=== PATIENT | male | born 1955 | race Caucasian/White ===

== ENCOUNTER 2022-03-03 15:16 | Emergency (ER) | payer OTHER ==
--- OUTSIDE RECORDS SUMMARY | 2022-03-03 15:20 | XMS REPORT | Continuity of Care Document ---
:1955 Author Organization [facility] t Address [address] [place] [address] Dr. [address] [place] [address] Care Team Providers Name Role Phone Evan Fitch MD Primary Care Physician JOSE LUNSFORD Attending Clinician Unavailable TERRI PABLO Attending Clinician Unavailable MD TERRI PABLO Attending Clinician Unavailable TERRI PABLO Admitting Clinician Unavailable MD TERRI PABLO Admitting Clinician Unavailable Problems Condition Condition Condition Status Onset Resolution Last Treating Co mments Source Name Details Category Date Date Treatment Clinician Date Chest pain Chest pain Disease Active Overview : [facility] 1-[address] 00:00: g of this Hospita 00 note l might be different from the original. 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 hyperchole 06-16 sterolemia sterolemia 00:00: Ho spita 00 l Essential Essential Disease Active 2019-05 Met hodi hypertensi hypertensi 06-16 st on on 00:00: Hospita 00 l Allergies, Adverse Reactions, Alerts Allergy Allergy Status Severity Reaction(s) Onset Inactive Treating Comm ents Source Name Type Date Date Clinician Flu Propensi Active Swelling Swelling Meth karla Vaccine ty to 02-[address] 2010 (36 adverse 00:00: difficult Hosp ashtyn Mos+)(Pf reaction 00 y l ) s to breathing drug Social History Social Habit Start Date Stop Date Quantity Comments Source History of Current smoker [facility] tobacco use Hospital History SDOH [facility] Alcohol Std Hospital Drinks History SDTN [facility] Alcohol Binge [facility] Alcohol intake 2020-05-23 2020-05-23 Lifetime [facility] 00:00:00 00:00:00 non-drinker Hospital (finding) Tobacco Comment 2020-05-22 2020-05-22 quit 31 years a Meth odist 00:00:00 00:00:00 Hospital Tobacco use and 2020-05-22 2020-05-22 Smokeless tobacco Me thodist exposure 00:00:00 00:00:00 non-user Hospital History SDOH 2020-05-22 2020-05-22 1 [facility] Alcohol Frequency 00:00:00 00:00:00 Hospita l Sex Ass[birth year] At [birth year] [facility] 00:00:00 00:00:00 Hospital Smoking Status Start Date Stop Date Source Ex-smoker 2020-05-22 00:00:00 2020-05-22 00:00:00 [facility] Medications Ordered Filled Start Stop Current Ordering Indication Dosage Frequency Signature Comments Components Source Medication Medication Date Date Medication? Clinician (SIG) Name Name rosuvastati Yes 40mg QD Take 1 Meth karla n (CRESTOR) 5-04 tablet (40 st 40 MG 00:00: mg total) Hospita tablet 00 by mouth l daily. colchicine Yes 1{capsu Take 1 Me thodi 0.6 mg 05-22 le} capsule by st capsule 13:04: mouth as Hospit a 31 needed. l diazePAM Yes 5mg Q6H Take 5 mg Meth karla (VALIUM) 5 -[address] MG tablet 13:04: every 6 Hospi ta 31 (six) l hours as needed for anxiety. meclizine Yes 25mg Q.[id number] Take 25 mg [facility] (ANTIVERT) 1-07 [id number] mouth [address] 25 mg 13:04: 3D (three) Hospita tablet 31 times a l day as needed for dizziness. therapeutic Yes 1{tbl} QD Take 1 Me thodi multivitami 1-[address] n 13:04: mouth Hospita (THERAGRAN) 31 daily. l tablet COQ10, Yes 100mg QD Take 100 Method i UBIQUINOL, 1-[address] ORAL 13:04: mouth Hospita 31 every l evening. vitamin B Yes 1{tbl} QD Take 1 Meth karla complex (B 1-[address] COMPLEX-VIT 13:04: mouth Hospi ta WILLARD B12 31 nightly. l ORAL) IRON, Yes 125mg QD Take 125 [facility] CARBONYL 1-[address] ORAL 13:04: mouth Hospita 31 every l evening. ascorbic Yes 1000mg QD Take 1,000 M ethodi acid, 1-[address] vitamin C, 13:04: mouth Hospit a (vitamin C) 31 every l 1000 MG evening. tablet vit A/vit Yes 1{capsu QD Take 1 Met hodi C/vit 1-07 le} capsule by E/zinc/aggie 13:04: mouth Hospi ta er (ICAPS 31 nightly. l AREDS ORAL) DM/p-ephed/ Yes 1{dose} QD Take 1 M ethodi acetaminoph 1-[address] /doxylam 13:04: mouth Hospita (NYQUIL D 31 every l ORAL) evening. FISH Yes 2000mg QD Take 2,000 Metho di OIL-DHA-EPA 1-[address] ORAL 13:04: mouth Hospita 31 every l evening. metoprolol 2019-05 No 50mg QD Take 1 Meth karla succinate 06-16 tablet (50 st XL (Toprol 00:00: 05:59 mg total) H ospita XL) 50 mg 00 :00 by mouth l 24 hr daily. tablet Xarelto 20 Yes 20mg QD Take 20 mg M ethodi mg tablet 02-[address] 00:00: every Hospita 00 evening. l lisinopriL Yes 10mg QD Take 10 mg M ethodi (PRINIVIL) 02-[address] 10 mg 00:00: every Hospita tablet 00 morning. l cyclobenzap Yes 10mg QD Take 10 mg [facility] rine 5-[address] (FLEXERIL) 00:00: nightly. Hos maicol 10 mg 00 l tablet Immunizations Ordered Immunization Filled Immunization Date Status Commen ts Source Name Name PFIZER COVID-19 MRNA 2020-07-13 Completed [facility] VACCINATION 00:00:00 Hospital PFIZER COVID-19 MRNA 2020-06-22 Completed Meth od[facility] VACCINATION 00:00:00 Hospital Procedures This patient has no known procedures. Plan of Care Planned Activity Planned Date Details Comments Source Future Scheduled 2022-03-02 HEPATITIS B VACCINES Met [facility] Test 10:01:56 (1 of 3 - 3-dose series) [code = HEPATITIS B VACCINES (1 of 3 - 3-dose series)] Future Scheduled 2022-03-02 Hepatitis C screening [facility] Test 10:01:56 (procedure) [code = 277818314] Future Scheduled 2022-03-02 COLONOSCOPY SCREENING [facility] Test 10:01:56 [code = COLONOSCOPY SCREENING] Future Scheduled 2022-03-02 SHINGLES VACCINES (1 Met [facility] Test 10:01:56 of 2) [code = SHINGLES VACCINES (1 of 2)] Future Scheduled 2022-03-02 COVID-19 VACCINE (3 - Me [facility] Test 10:01:56 Booster for Pfizer series) [code = COVID-19 VACCINE (3 - Booster for Pfizer series)] Future Scheduled 2022-03-02 INFLUENZA VACCINE Method [facility] Test 10:01:56 [code = INFLUENZA VACCINE] Encounters Start End Encounter Admission Attending Care Care Encounter Source Date/Time Date/Time Type Type Clinicians Facility Department ID 2020-07-13 2020-07-13 Outpatient [facility] [id number] 00:00:00 00:00:00 JOSE 646 [address] 2020-06-22 2020-06-22 Outpatient [facility] [id number] 00:00:00 00:00:[address] 2020-05-22 2020-05-22 [place] [id number] 00:00:00 00:00:00 TERRI [address] 2020-05-20 2020-05-20 [facility] [id number] 00:00:00 00:00:00 TERRI [address] 2020-05-13 2020-05-13 Outpatient [facility] [id number] 00:00:00 00:00:00 TERRI [address] 2020-04-29 2020-04-29 Outpatient [facility] [id number] 00:00:00 00:00:[address] 2020-04-15 2020-04-15 [facility] [id number] 00:00:00 00:00:00 TERRI [address] Results Test Description Test Time Test Comments Results Result Comments Source SARS-CoV-2 (COVID-19) RNA [Presence] in Respiratory sp ecimen by 2020-05-21 02:22:18 YOHANNES with probe detection Test Item Value Reference Range Interpretation Comme nts SARS-CoV-2 (COVID-19) RNA [Presence] in Respiratory Not detected No t-Detected specimen by YOHANNES with probe detection (test code = 64500-4) [facility]
[2022-03-03 16:51] LABS: Urine Blood 3+ (Negative); Urine Glucose Negative (Negative); Urine Protein 1+ (Negative)
[2022-03-03 17:07] LABS: Absolute Lymphocytes (CBC) 1.4 K/uL (0.7-4.9); Hematocrit 38.7 % (39.6-49.0); Lymphocytes % 10.8 % (15.3-44.8); MCV 91.2 fL (80-100); MPV 7.8 fL (7.6-11.3); RBC Red Blood Cell Count 4.24 M/uL (4.33-5.43)
[2022-03-03 17:10] LABS: Protime INR 1.7
[2022-03-03 17:28] LABS: Albumin 3.9 g/dL (3.4-5.0); Bilirubin Total 0.6 mg/dL (0.2-1.0); Potassium 4.1 mmol/L (3.5-5.1); Protein, Total 7.3 g/dL (6.4-8.2)
[2022-03-03 17:44] LABS: Urine Bacteria <20 /HPF (<20); Urine RBC 21-50 /HPF (None Seen)
--- NOTE | 2022-03-03 18:30 | ER ---
Nurse's Notes [facility] Name: Elvin Mdoi Jr Age: 66 yrs Sex: Male : 1955 Arrival Date: 03/03/2022 Time: 15:20 Bed 8 Private MD: Diagnosis: Hematuria, unspecified;Dehydration Presentation: 03/03 15:36 Chief complaint: Patient states: Blood in urine X 4-5 weeks. Ultrasound was done ld1 yesterday at this hospital outpatient. C/O fatigue, blood in urine and thinks HGB level is down. Pt denies pain. Coronavirus screen: At this time, the client does not indicate any symptoms associated with coronavirus-19. Ebola Screen: No symptoms or risks identified at this time. Initial Sepsis Screen: Does the patient meet any 2 criteria? No. Patient's initial sepsis screen is negative. Does the patient have a suspected source of infection? No. Patient's initial sepsis screen is negative. Risk Assessment: Do you want to hurt yourself or someone else? Patient reports no desire to harm self or others. Onset of symptoms was March 03, 2022. 15:36 Method Of Arrival: Ambulatory ld1 15:36 Acuity: QUINTON 3 ld1 Triage Assessment: 15:36 General: Appears in no apparent distress. comfortable, Behavior is calm, cooperative, ld1 appropriate for age. Pain: Denies pain. EENT: No signs and/or symptoms were reported regarding the EENT system. Neuro: Level of Consciousness is awake, alert, obeys commands, Oriented to person, place, time, situation. Cardiovascular: Capillary refill < 3 seconds Patient's skin is warm and dry. Respiratory: Airway is patent Respiratory effort is even, unlabored. GI: Abdomen is round non-distended. : Urine is blood tinged, mo blood, Reports Blood in urine. Historical: - Allergies: 15:36 Fentanyl; ld1 15:36 flu vaccine [id number](6mos up); ld1 - Home Meds: 15:40 Xarelto 20 mg oral tab 1 tab once daily [Active]; lisinopril 10 mg Oral tab 1 tab once ld1 daily [Active]; carvedilol 12.5 mg oral tab 1 tab 2 times per day [Active]; - PMHx: 15:36 TN; 3 Strokes; Hypertensive disorder; ld1 - PSHx: 15:36 2 back surgeries; 8 neck surgeries; ld1 - Immunization history:: Adult Immunizations up to date, Client reports receiving the 2nd dose of the Covid vaccine. - Social history:: Smoking status: Patient denies any tobacco usage or history of. Patient/guardian denies using alcohol. Screenin:37 Abuse screen: Denies threats or abuse. Denies injuries from another. Nutritional bp screening: No deficits noted. Tuberculosis screening: No symptoms or risk factors identified. Fall Risk None identified. Assessment: 16:10 General: SEE TRIAGE NOTE. bp 17:36 Reassessment: No changes from previously documented assessment. Patient and/or family bp updated on plan of care and expected duration. Pain level reassessed. 18:38 Reassessment: Patient is alert, oriented x 3, equal unlabored respirations, skin aa5 warm/dry/pink. Awaiting IV hydration before d/c home . Vital Signs: 15:36 BP 171 / 93; Pulse 79; Resp 18; Temp 98.6(O); Pulse Ox 100% on R/A; Weight 115.67 kg; ld1 Height 6 ft. 3 in. (190.50 cm); Pain 0/10; 19:00 BP 150 / 85; Pulse 71; Resp 16; Pulse Ox 98% ; bp 19:54 BP 149 / 84; Pulse 71; Resp 18 S; Pulse Ox 99% on R/A; as6 15:36 Body Mass Index 31.87 (115.67 kg, 190.50 cm) ld1 ED Course: 15:20 Patient arrived in ED. as 15:36 Arm band placed on right wrist. ld1 15:39 Triage completed. ld1 16:00 Fransico Greenwood NP is PHCP. pm1 16:00 Mark Anthony Lee MD is Attending Physician. pm1 16:26 Castro Ruvalcaba, HAI is Primary Nurse. bp 16:43 Inserted saline lock: 22 gauge in left antecubital area, using aseptic technique. Blood bp collected. 17:37 Patient has correct armband on for positive identification. Bed in low position. Call bp light in reach. Side rails up X2. 19:05 Primary Nurse role handed off by Castro Ruvalcaba, RN mw2 19:07 Castro Ruvalcaba, RN is Primary Nurse. bp 19:53 No provider procedures requiring assistance completed. IV discontinued, intact, as6 bleeding controlled, No redness/swelling at site. Pressure dressing applied. Administered Medications: 18:35 Drug: NS 0.9% 1000 ml Route: IV; Rate: 1000 ml; Site: left antecubital; aa5 19:55 Follow up: Response: No adverse reaction; IV Status: Completed infusion; IV Intake: as6 1000ml Medication: 19:53 VIS not applicable for this client. as6 Intake: 19:55 IV: 1000ml; Total: 1000ml. as6 Outcome: 18:29 Discharge ordered by MD. pm1 19:54 Discharged to home ambulatory, with family. as6 19:54 Condition: stable 19:54 Discharge instructions given to patient, Instructed on discharge instructions, follow up and referral plans. Demonstrated understanding of instructions, follow-up care. 19:55 Patient left the ED. as6 Signatures: Delma Iglesias Audri, RN RN aa5 Fransico Greenwood, BUYER GRAIN BUYER GRAIN pm1 Castro Ruvalcaba, RN RN Loraine Durbin 2 Krystin Haque, HAI RN ld1 Chance Tyson, HAI RN as6
--- NOTE | 2022-03-03 18:31 | EDPHYS ---
Physician Documentation [facility] Name: Elvin Modi Jr Age: 66 yrs Sex: Male : 1955 Arrival Date: 03/03/2022 Time: 15:20 Bed 8 Private MD: SUJEY Physician Mark Anthony Lee HPI: 03/03 16:26 This 66 yrs old Male presents to ER via Ambulatory with complaints of Urinary Problem. pm1 16:26 The patient presents with hematuria. Onset: The symptoms/episode began/occurred 4-5 pm1 weeks ago. Modifying factors: the symptoms are aggravated by physical activity - working outdoors . Associated signs and symptoms: Pertinent negatives: abdominal pain, dysuria, fever. Severity of symptoms: in the emergency department the symptoms have improved. The patient has been recently seen by a physician: the patient's primary care provider, Dr. Fitch. Had U/S kidneys and bladder performed in here on outpatient basis yesterday. 16:26 Patient presenting here today due to concerns that bleeding has caused him to be anemic pm1 because the patient felt generalized weakness after working in the yard today. When patient is working in the yard he notices that it causes him to have increased hematuria over the past 4 to 5 weeks. Historical: - Allergies: 15:36 Fentanyl; ld1 15:36 flu vaccine [id number](6mos up); ld1 - Home Meds: 15:40 Xarelto 20 mg oral tab 1 tab once daily [Active]; lisinopril 10 mg Oral tab 1 tab once ld1 daily [Active]; carvedilol 12.5 mg oral tab 1 tab 2 times per day [Active]; - PMHx: 15:36 NH; 3 Strokes; Hypertensive disorder; ld1 - PSHx: 15:36 2 back surgeries; 8 neck surgeries; ld1 - Immunization history:: Adult Immunizations up to date, Client reports receiving the 2nd dose of the Covid vaccine. - Social history:: Smoking status: Patient denies any tobacco usage or history of. Patient/guardian denies using alcohol. ROS: 16:26 Constitutional: Negative for fever, chills, and weight loss, Cardiovascular: Negative pm1 for chest pain, palpitations, and edema, Respiratory: Negative for shortness of breath, cough, wheezing, and pleuritic chest pain, Abdomen/GI: Negative for abdominal pain, nausea, vomiting, diarrhea, and constipation, Back: Negative for injury and pain, MS/Extremity: Negative for injury and deformity. 16:26 Skin: Negative for injury, rash, and discoloration. 16:26 : Positive for hematuria. 16:26 Neuro: Positive for Generalized with, Negative for dizziness, headache, numbness, tingling. 16:26 All other systems are negative. Exam: 16:26 Constitutional: This is a well developed, well nourished patient who is awake, alert, pm1 and in no acute distress. Head/Face: Normocephalic, atraumatic. 16:26 Back: No spinal tenderness. No costovertebral tenderness. Full range of motion. Skin: Warm, dry with normal turgor. Normal color with no rashes, no lesions, and no evidence of cellulitis. MS/ Extremity: Pulses equal, no cyanosis. Neurovascular intact. Full, normal range of motion. 16:26 Eyes: Exam is negative for acute changes, Periorbital structures: no acute changes, Extraocular movements: no acute changes, Conjunctiva: no acute changes, no injection. 16:26 ENT: Mouth: no acute changes, Lips: normal, moist, Oral mucosa: normal, pink and intact, moist. 16:26 Cardiovascular: Exam negative for acute changes, Rate: normal, Rhythm: regular, Pulses: no pulse deficits are appreciated. 16:26 Respiratory: Exam negative for acute changes, respiratory distress, shortness of breath, Breath sounds: are clear throughout. 16:26 Abdomen/GI: Inspection: abdomen appears normal, Palpation: abdomen is soft and non-tender, in all quadrants. 16:26 Neuro: Exam negative for acute changes, Orientation: is normal, Motor: is normal, moves all fours. Vital Signs: 15:36 BP 171 / 93; Pulse 79; Resp 18; Temp 98.6(O); Pulse Ox 100% on R/A; Weight 115.67 kg; ld1 Height 6 ft. 3 in. (190.50 cm); Pain 0/10; 19:00 BP 150 / 85; Pulse 71; Resp 16; Pulse Ox 98% ; bp 19:54 BP 149 / 84; Pulse 71; Resp 18 S; Pulse Ox 99% on R/A; as6 15:36 Body Mass Index 31.87 (115.67 kg, 190.50 cm) ld1 MDM: 16:11 Patient medically screened. pm1 18:28 Data reviewed: vital signs. Data interpreted: Pulse oximetry: on room air is 100 %. pm1 Interpretation: normal. Counseling: I had a detailed discussion with the patient and/or guardian regarding: the historical points, exam findings, and any diagnostic results supporting the discharge/admit diagnosis, lab results, the need for outpatient follow up, for definitive care, a urologist, Hematology, to return to the emergency department if symptoms worsen or persist or if there are any questions or concerns that arise at home. 19:10 ED course: Patient without gross hematuria present in urine sample. Negative for anemia pm1 requiring transfusion of blood. Hemoglobin hematocrit within acceptable levels given hematuria onset 4 to 5 weeks. Recommend patient follow-up with urology for possible cystoscope for examination. Unremarkable ultrasound of kidney and bladder from yesterday. 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 Impression for his generalized weakness is dehydration which is evident and his BUN and creatinine. Patient reports improvement in his symptoms with IV fluid hydration in the ER. 03/03 16:23 Order name: CBC with Diff; Complete Time: 17:55 pm1 03/03 16:23 Order name: CMP; Complete Time: 17:39 pm1 03/03 16:23 Order name: Urine Microscopic Only; Complete Time: 17:55 pm1 03/03 16:23 Order name: PT-INR; Complete Time: 17:39 pm1 03/03 16:23 Order name: Ptt, Activated; Complete Time: 17:39 pm1 03/03 16:51 Order name: Urine Dipstick-Ancillary; Complete Time: 17:39 EDMS 03/03 16:23 Order name: IV Saline Lock; Complete Time: 16:43 pm1 03/03 16:23 Order name: Labs collected and sent; Complete Time: 16:43 pm1 03/03 16:23 Order name: Urine Dipstick-Ancillary (obtain specimen); Complete Time: 16:43 pm1 Administered Medications: 18:35 Drug: NS 0.9% 1000 ml Route: IV; Rate: 1000 ml; Site: left antecubital; aa5 19:55 Follow up: Response: No adverse reaction; IV Status: Completed infusion; IV Intake: as6 1000ml Disposition Summary: 03/03/22 18:29 Discharge Ordered Location: Home pm1 Problem: new pm1 Symptoms: have improved pm1 Condition: Stable pm1 Diagnosis - Hematuria, unspecified pm1 - Dehydration pm1 Followup: pm1 - With: Emergency Department - When: As needed - Reason: Worsening of condition Followup: pm1 - With: Private Physician - When: 2 - 3 days - Reason: Recheck today's complaints, Continuance of care, Re-evaluation by your physician Discharge Instructions: - Discharge Summary Sheet pm1 - Dehydration, Adult pm1 - Hematuria, Adult pm1 - Rehydration, Adult pm1 Forms: - Medication Reconciliation Form pm1 - Thank You Letter pm1 - Antibiotic Education pm1 - Prescription Opioid Use pm1 Signatures: Dispatcher [employer] EDMS Janay Vazquez, RN RN aa5 Fransico Greenwood NP WELDING MACHINE OPERATOR FRICTION pm1 Krystin Haque RN RN ld1 Chance Tyson RN as6
[2022-03-03] MEDS ORDERED: NA CHLORIDE 0.9% 1,000 ML ONE (18:33)
[2022-03-03 20:17] VITALS: TEMP 98.6
[2022-03-03 20:20] VITALS: BP 149/84; O2SAT 99
== END 2022-03-03 19:55 | disposition home or self-care (01) ==
LOC: ER 15:16
DX: R31.9 Hematuria, unspecified (principal); E86.0 Dehydration; I10 Essential (primary) hypertension; I25.2 Old myocardial infarction; Z86.73 Personal history of transient ischemic attack (TIA), and cerebral infarction without residual deficits; Z88.5 Allergy status to narcotic agent; Z88.7 Allergy status to serum and vaccine; Z79.01 Long term (current) use of anticoagulants
CPT/HCPCS: 85025; 36415; 85610; 85730; 80053; 96360; 99283; J7030; 81003; 81015

== ENCOUNTER 2023-01-31 23:39 | Emergency (ER) | payer OTHER ==
--- OUTSIDE RECORDS SUMMARY | 2023-01-31 23:44 | XMS REPORT | Continuity of Care Document ---
:[address] [facility] [place], [place] t Address [address] [facility] [address] [place] [address] Care Team Providers Name Role Phone Evan Fitch MD Primary Care Physician Jose Merino Attending Clinician Unavailable JOSE LUNSFORD Attending Clinician Unavailable TERRI PABLO Attending Clinician Unavailable MD TERRI PABLO Attending Clinician Unavailable KNOW, DOES_NOT Admitting Clinician Unavailable TERRI PABLO Admitting Clinician Unavailable MD TERRI PABLO Admitting Clinician Unavailable Payers Payer Name Policy Type Policy Number Effective Date Expiration Date S ource Problems Condition Condition Condition Status Onset Resolution Last Treating Co mments Source Name Details Category Date Date Treatment Clinician Date Chest pain Chest pain Disease Active Overview : Methodi 1-[address] 00:00: g of this Hospita 00 note l might be different from the original. 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 hyperchole 06-16 sterolemia sterolemia 00:00: Ho spita 00 l Essential Essential Disease Active 2019-05 Met hodi hypertensi hypertensi 06-16 st on on 00:00: Hospita 00 l Allergies, Adverse Reactions, Alerts Allergy Allergy Status Severity Reaction(s) Onset Inactive Treating Comm ents Source Name Type Date Date Clinician Influenz DA Active SV DIFFICULTY 2021-05 [facility] a Virus BREATHING 06-23 [facility] Vacc[facility] AND SWOLLEN 00:00: [facility] Influenz DA Active U UNKNOWN [facility] a Virus 05-21 [facility] Vacc[facility] Flu Propensi Active Swelling Swelling Meth karla Vaccine ty to 02-[address] 2010 (36 adverse 00:00: difficult Hosp ashtyn Mos+)(Pf reaction 00 y l ) s to breathing drug Social History Social Habit Start Date Stop Date Quantity Comments Source History [facility] History of tobacco Current smoker [facility] Alcohol intake 2020-05-23 2020-05-23 [facility] 00:[facility]:00 non-drinker Hospital (finding) History of Social 2020-05-23 2020-05-[address] function 00:00:00 00:00:00 Hospital Tobacco use and 2020-05-22 2020-05-22 Smokeless [facility] exposure 00:00:00 00:00:00 tobacco non-user Hospital History SDOH 2020-05-22 2020-05-22 1 [facility] Frequency 00:00:00 00:00:00 Hospita l Tobacco Comment 2020-05-22 2020-05-22 quit 31 years a Meth odist 00:00:00 00:00:00 Hospital Sex Assigned At [birth year] [facility] Smoking Status Start Date [...] Hospita tablet 00 by mouth l daily. rosuvastati Yes 40mg QD Take 1 Meth karla n (CRESTOR) 5-04 tablet (40 st 40 MG 00:00: mg total) Hospita tablet 00 by mouth l daily. rosuvastati Yes 40mg QD Take 1 Meth karla n (CRESTOR) 5-04 tablet (40 st 40 MG 00:00: mg total) Hospita tablet 00 by mouth l daily. vitamin B Yes 1{tbl} QD Take 1 Meth karla complex (B 1-07 tablet by COMPLEX-VIT 13:04: mouth Hospi ta WILLARD B12 31 nightly. l ORAL) IRON, Yes 125mg QD Take 125 Methodi CARBONYL 1-[address] ORAL 13:04: mouth Hospita 31 every l evening. ascorbic Yes 1000mg QD Take 1,000 M ethodi acid, 1-07 mg by vitamin C, 13:04: mouth Hospit a (vitamin C) 31 every l 1000 MG evening. tablet vit A/vit Yes 1{capsu QD Take 1 Met hodi C/vit 1-07 le} capsule by E/zinc/aggie 13:04: mouth Hospi ta er (ICAPS 31 nightly. l AREDS ORAL) DM/p-ephed/ Yes 1{dose} QD Take 1 M ethodi acetaminoph 1-07 Dose by /doxylam 13:04: mouth Hospita (NYQUIL D 31 every l ORAL) evening. FISH Yes 2000mg QD Take 2,000 Metho di OIL-DHA-EPA 1-[address] ORAL 13:04: mouth Hospita 31 every l evening. colchicine Yes 1{capsu Take 1 Me thodi 0.6 mg 1-07 le} capsule by capsule 13:04: mouth as Hospit a 31 needed. l diazePAM Yes 5mg Q6H Take 5 mg Meth karla (VALIUM) 5 1-[address] MG tablet 13:04: every 6 Hospi ta 31 (six) l hours as needed for anxiety. meclizine Yes 25mg Q.[id number] Take 25 mg Methodi (ANTIVERT) 1-07 [id number] by mouth 3 [address] 25 mg 13:04: 3D (three) Hospita tablet 31 times a l day as needed for dizziness. therapeutic 2020- Yes 1{tbl} QD Take 1 Me thodi multivitami 1-[address] n 13:04: mouth Hospita (THERAGRAN) 31 daily. l tablet COQ10, Yes 100mg QD Take 100 Method i UBIQUINOL, 1-[address] ORAL 13:04: mouth Hospita 31 every l evening. vitamin B Yes 1{tbl} QD Take 1 Meth karla complex (B 1-07 tablet by COMPLEX-VIT 13:04: mouth Hospi ta WILLARD B12 31 nightly. l ORAL) IRON, Yes 125mg QD Take 125 Method[facility] CARBONYL 1-[address] ORAL 13:04: mouth Hospita 31 every l evening. ascorbic Yes 1000mg QD Take 1,000 M ethodi acid, 1-07 mg by vitamin C, 13:04: mouth Hospit a (vitamin [...] 13:04: mouth Hospita 31 every l evening. colchicine 2020-0 Yes 1{capsu Take 1 Me thodi 0.6 mg 1-07 le} capsule by st capsule 13:04: mouth as Hospit a 31 needed. l diazePAM 0 Yes 5mg Q6H Take 5 mg Meth karla (VALIUM) 5 1-[address] MG tablet 13:04: every 6 Hospi ta 31 (six) l hours as needed for anxiety. meclizine Yes 25mg Q.[id number] Take 25 mg Methodi (ANTIVERT) 1-07 [id number] by mouth [address] 25 mg 13:04: [...] Meth karla complex (B 1-07 tablet by COMPLEX-VIT 13:04: mouth Hospi ta WILLARD B12 [...] 1 M ethodi acetaminoph 1-07 Dose by /doxylam 13:04: mouth Hospita (NYQUIL D 31 every l ORAL) evening. FISH Yes 2000mg QD Take 2,000 Metho di OIL-DHA-EPA 1-[address] ORAL 13:04: mouth Hospita 31 every l evening. colchicine Yes 1{capsu Take 1 Me thodi 0.6 mg 1-07 le} capsule by capsule 13:04: mouth as Hospit a 31 needed. l diazePAM Yes 5mg Q6H Take 5 mg Meth karla (VALIUM) 5 -[address] MG tablet 13:04: every 6 Hospi ta 31 (six) l hours as needed for anxiety. meclizine Yes 25mg Q.[id number] Take 25 mg Method[facility] (ANTIVERT) 1-07 [id number] by mouth 3 [address] 25 mg 13:04: [...] Hospita 31 every l evening. metoprolol 2019-05 50mg QD Take 1 Meth karla succinate 06-16 12 tablet (50 st XL (Toprol 00:00: 05:59 mg total) H ospita XL) 50 mg 00 :00 by mouth l 24 hr daily. tablet Xarelto 20 2019-0 Yes 20mg QD Take 20 mg M ethodi mg tablet 02-[address] 00:00: every Hospita 00 evening. l lisinopriL 2019-0 Yes 10mg QD Take 10 mg M ethodi (PRINIVIL) 02-[address] 10 mg 00:00: every Hospita tablet 00 morning. l Xarelto 20 2020-0 Yes 20mg QD Take 20 mg M ethodi mg tablet - by mouth st 00:00: every Hospita 00 evening. l lisinopriL 2020-0 Yes 10mg QD Take 10 mg M ethodi (PRINIVIL) - by mouth st 10 mg 00:00: every Hospita tablet 00 morning. l Xarelto 20 2020-0 Yes 20mg QD Take 20 mg M ethodi mg tablet - by mouth st 00:00: every Hospita 00 evening. l lisinopriL 2020-0 Yes 10mg QD Take 10 mg M ethodi (PRINIVIL) -[address] 10 mg 00:00: every Hospita tablet 00 morning. l cyclobenzap Yes 10mg QD Take 10 mg Methodi rine 5-[address] (FLEXERIL) 00:00: nightly. Hos maicol 10 mg 00 l tablet cyclobenzap 2019-0 Yes 10mg QD Take 10 mg Methodi rine 5-[address] (FLEXERIL) 00:00: nightly. Hos maicol 10 mg 00 l tablet cyclobenzap 2019-0 Yes 10mg QD Take 10 mg Methodi rine 5-[address] (FLEXERIL) 00:00: nightly. Hos maicol 10 mg 00 l tablet Immunizations Ordered Immunization Filled Immunization Date Status Commen ts Source Name Name PFIZER COVID-19 MRNA 2020-07-13 Completed Meth odist VACCINATION 00:00:00 [facility] PFIZER COVID-19 MRNA 2020-07-13 Completed Meth odist VACCINATION 00:00:00 [facility] PFIZER COVID-19 MRNA 2020-07-13 Completed Meth odist VACCINATION 00:00:00 [facility] PFIZER COVID-19 MRNA 2020-06-22 Completed Meth odist VACCINATION 00:00:00 [facility] PFIZER COVID-19 MRNA 2020-06-22 Completed Meth odist VACCINATION 00:00:00 [facility] PFIZER COVID-19 MRNA 2020-06-22 Completed Meth odist VACCINATION 00:00:00 Hospital Procedures This patient has no known procedures. Plan of Care Planned Activity Planned Date Details Comments Source Future Scheduled 2023-01-14 [facility] Test 01:58:50 malignant neoplasm of colon (procedure) [code = 930935561] Future Scheduled 2023-01-14 [facility] Test 01:58:50 malignant neoplasm of colon (procedure) [code = 112438662] Future Scheduled 2023-01-14 [facility] Test 01:58:50 malignant neoplasm of colon (procedure) [code = 442228573] Future Scheduled 2023-01-14 Hepatitis C screening [facility] Test 01:58:50 (procedure) [code = 402985235] Future Scheduled 2023-01-14 [facility] Test 01:58:50 malignant neoplasm of colon (procedure) [code = 690859540] Future Scheduled 2023-01-14 [facility] Test 01:58:50 malignant neoplasm of colon (procedure) [code = 512181553] Future Scheduled 2023-01-14 SHINGLES VACCINES (1 Met [facility] Test 01:58:50 of 2) [code = SHINGLES VACCINES (1 of 2)] Future Scheduled 2023-01-14 COVID-19 VACCINE (3 - Me [facility] Test 01:58:50 Pfizer series) [code = COVID-19 VACCINE (3 - Pfizer series)] Future Scheduled 2023-01-14 INFLUENZA VACCINE [facility] Test 01:58:50 (#1) [code = INFLUENZA VACCINE (#1)] Future Scheduled 2022-04-28 Hepatitis C screening [facility] Test 02:37:13 (procedure) [code = 321951609] Future Scheduled 2022-04-28 COLONOSCOPY SCREENING [facility] Test 02:37:13 [code = COLONOSCOPY SCREENING] Future Scheduled 2022-04-28 SHINGLES VACCINES (1 Met [facility] Test 02:37:13 of 2) [code = SHINGLES VACCINES (1 of 2)] Future Scheduled 2022-04-28 COVID-19 VACCINE (3 - [facility] Test 02:37:13 Booster for Pfizer series) [code = COVID-19 VACCINE (3 - Booster for Pfizer series)] Future Scheduled 2022-04-28 INFLUENZA VACCINE Method [facility] Test 02:37:13 [code = INFLUENZA VACCINE] Future Scheduled 2022-03-02 HEPATITIS B VACCINES Met [facility] Test 10:01:56 (1 of 3 - 3-dose series) [code = HEPATITIS B VACCINES (1 of 3 - 3-dose series)] Future Scheduled 2022-03-02 Hepatitis C screening [facility] Test 10:01:56 (procedure) [code = 569542052] Future Scheduled 2022-03-02 COLONOSCOPY SCREENING [facility] Test 10:01:56 [code = COLONOSCOPY SCREENING] Future Scheduled 2022-03-02 SHINGLES VACCINES (1 Met [facility] Test 10:01:56 of 2) [code = SHINGLES VACCINES (1 of 2)] Future Scheduled 2022-03-02 COVID-19 VACCINE (3 - [facility] Test 10:01:56 Booster for Pfizer series) [code = COVID-19 VACCINE (3 - Booster for Pfizer series)] Future Scheduled 2022-03-02 INFLUENZA VACCINE Method [facility] Test 10:01:56 [code = INFLUENZA VACCINE] Encounters Start End Encounter Admission Attending Care Care Encounter Source Date/Time Date/Time Type Type Clinicians Facility Department ID 2022-04-29 2022-04-29 Outpatient ALEXY KeaneWU [facility]G [id number] [facility] 05:46:00 05:46:00 Jose 40 [facility] 2020-07-13 2020-07-13 Outpatient ISATU, [facility] [id number] [place] 00:00:00 00:00:00 JOSE 646 [facility] 2020-06-22 2020-06-22 Outpatient [facility] [id number] [place] 00:00:00 00:00:[address] 2020-05-22 2020-05-22 Outpatient SAMY, [place] [id number] [place] 00:00:00 00:00:00 TERRI [address] 2020-05-20 2020-05-20 Outpatient SAMY, [facility] [id number] [place] 00:00:00 00:00:00 TERRI [address] 2020-05-13 2020-05-13 Outpatient SAMY, [facility] [id number] [place] 00:00:00 00:00:00 TERRI [address] 2020-04-29 2020-04-29 Outpatient [facility] [id number] [place] 00:00:00 00:00:[address] 2020-04-15 2020-04-15 Outpatient SAMY, [facility] [id number] [place] 00:00:00 00:00:00 TERRI [address] Results Test Description Test Time Test Comments Results Result Comments Source SURGICAL 2022-04-30 11:50:00 Test Item Value Reference Range Interpretation Comme nts SURGICAL RUN (test DATE: 04/30/22 Dustin WISEMAN 1 RUN TIME: 1151 Specimen Inquiry RUN USER: INTERFACE code = MARNI SR) ENT: ARNEL GARAY [facility] #: [id number] AGE/SX: 66/M ROOM: RE04/29/22REG DR: Jose Merino MD : 53 BED: DIS: STATUS: [facility] TLOC: SPEC #: [id number] RECD: 1 06/30/21 STATUS: [facility] #: [id number] AUDI: 04/29/[address] [facility] [address]: Jose Merino MD ENTERE SP TYPE: SURGICAL OTHR DR: Self Referred Jose Merino MDORDERED: 88 305, ANATOMIC SPEC, SPECIMEN TRACK COPIES TO: [place] [id number] [place] [address] PROCEDURES: [id number] (04/29/22) SPECIMEN TRA CK (04/29/22) TISSUES: A. 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 - No invasion identified. - No muscularis propria present. GROSS DESCRIPTION Right late ral bladder wall tumor. It consists of parekh tissue fragments measuring 0.5 x 0.4x 0.2 cm, entirely submitted as A1. Technical tissue processing and slide preparation performed at [facility],[address], [place] [address] MICROSCOPIC DESCRIPTION Microscopic exam ination is performed and the findings are incorporated into the finaldiagnosis. Please see diagnosis for the findings. ----- Signed SIGNATURE ON FILE Akila Gupta 04/30/22 1 150 END OF REPORT PROTHROMBIN [id number] 11:55:00 Test Item Value Reference Range Interpretation Comments PROTHROMBIN TIME 15.2 SECONDS 9.4-12.7 H PATIENT (test code = PTP) INTERNATIONAL NORMAL 1.3 0.86-1.14 H The INR is to be RATIO (test code = used only for INR) monitoring oral anticoagulantth erap y. INDICATION INR VALUE ---- ---- ---- -------1. Prophylaxis, de ep venous thrombos is, including high risk surgery. 2.0 - 3.0 2. Prophylaxis, deep venous thrombosis, hip surgery, treatm ent for deep venous thrombosis or pulmonary prevention of systemic emboli sm in patients wit h valvular heart disease, atrial fibrillation, tissue heart va lve, or acute myocar dial infarction. 2.0 - 3.0 3. Prenatal Genetic Counselor al prosthesis hear t valves, recurre nt systemic emboli sm. 3.0 - 4.5 Comments to Table Operator: TAKES XARELTOPTT [id number] 11:55:00 Test Item Value Reference Range Interpretation Comments PTT ACTIVATED (test code = APTT) 36.3 SECONDS 26.2-35.4 H Comments to Table Operator: TAKES XARELTOBASIC METABOLIC [id number] 11:54:00 Test Item Value Reference Range Interpretation Comments SODIUM (test code = 140 MMOL/L 137-145 N NA) POTASSIUM (test code 4.2 MMOL/L 3.5-5.1 N = K) CHLORIDE (test code 105 MMOL/L 98-107 N = CL) CARBON DIOXIDE (test 27 MMOL/L 22-30 N code = CO2) ANION GAP (test code 12 MMOL/L 14-24 L = GAP) GLUCOSE (test code = 107 MG/DL 74-106 H GLU) BLOOD UREA NITROGEN 21 MG/DL 9-20 H (test code = BUN) GLOMERULAR > 60 The Glomerular FILTRATION RATE Filtration R ate is a (test code = GFR) calculated parameterbased on serum Creatinine, pat ient age and sex. GFR va luesless than 60 mL/min/ 1.73 square meters a re indicative ofCh ronic Kidney Disease. Values less than 15 mL/min/1.73squa re meters indicate Kidney failure. The calculation for GFR is based on the CK D-EPI (2020) calculat ion. This formulais race indifferent and is the recommended for yolie for GFRby the Nat nal Kidney Foundati on for Adults.The GFR will not calculate if th e sex is unknown or if thepatient's ag e is <18 years. CREATININE (test 0.90 MG/DL 0.66-1.25 N code = CREAT) CALCIUM (test code = 9.1 MG/DL 8.4-10.2 N CA) CBC W/AUTO [id number] 11:40:00 Test Item Value Reference Range Interpretation Comments WHITE BLOOD CELL (test code = 7.8 K/MM3 3.8-9.8 N WBC) RED BLOOD CELL (test code = 4.58 M/MM3 3.95-5.67 N RBC) HEMOGLOBIN (test code = HGB) 14.3 G/DL 12.4-16.7 N HEMATOCRIT (test code = HCT) 42.3 % 35.9-49.5 N MEAN CELL VOLUME (test code = 92 fL 81.7-96.1 N MCV) MEAN CELL HGB (test code = MCH) 31.2 pg 27.6-33.2 N MEAN CELL HGB CONCETRATION 33.8 % 32.9-35.5 N (test code = MCHC) RED CELL DISTRIBUTION WIDTH 13.2 % 12.1-15.2 N (test code = RDW) PLATELET COUNT (test code = 198 K/MM3 129-368 N PLT) MEAN PLATELET VOLUME (test code 9.4 fl 7.4-10.4 N = MPV) NEUTROPHIL % (test code = NT%) 60.9 % 43-75 N IMMATURE GRANULOCYTE % (test 0.4 % 0.0-2.0 N code = IG%) LYMPHOCYTE % (test code = LY%) 27.6 % 14-44 N MONOCYTE % (test code = MO%) 8.8 % 4-13 N EOSINOPHIL % (test code = EO%) 1.7 % 0-6 N BASOPHIL % (test code = BA%) 0.6 % 0-2 N NUCLEATED RBC % (test code = 0.0 % 0-1.0 N NRBC%) NEUTROPHIL # (test code = NT#) 4.73 K/mm3 2.0-7.6 N IMMATURE GRANULOCYTE # (test 0.03 x10 3/uL 0-0.03 N code = IG#) LYMPHOCYTE # (test code = LY#) 2.14 K/mm3 1.0-3.8 N MONOCYTE # (test code = MO#) 0.68 K/mm3 0.1-0.8 N EOSINOPHIL # (test code = EO#) 0.13 K/mm3 0.0-0.2 N BASOPHIL # (test code = BA#) 0.05 K/mm3 0.0-0.2 N NUCLEATED RBC # (test code = 0.00 K/mm3 0.0-0.1 N NRBC#) SARS-CoV-2 (COVID-19) RNA [Presence] in Respiratory specimen by YOHANNES with probe [id number] 02:22:18 Test Item Value Reference Range Interpretation Comments SARS-CoV-2 (COVID-19) RNA Not detected Not-Detected [Presence] in Respiratory specimen by YOHANNES with probe detection (test code = 77474-3) [facility] Notes Date/Time Note Provider Source 2022-04-30 16:06:00-00:00 [id number] [facility] [address] [place] [address] PATIENT NAME: ARNEL GARAY ADMIT DATE: ACCOUNT NO: [id number] ROOM NO: AGE: 66 REPORT TYPE: OPERATIVE REPORT SEX: M ADMITTING PHYSICIAN: ATTENDING PHYSICIAN:Jose Merino MD OPERATION DATE: 04/29/2022 PREOPERATIVE DIAGNOSIS: Small bladder tumors [place] suring less than 2 cm in aggregate located on the right upper lateral wal l. POSTOPERATIVE DIAGNOSIS: Small bladder tumors me asuring less than 2 cm in aggregate located on the right upper lateral wal l. PROCEDURE PERFORMED: 1. Cystoscopy. 2. Transurethral resection of bladder tumors, le ss than 2 cm. ANESTHESIA: General. SURGEON: Jose Merino MD PROCESS CONTROLLER: INDICATIONS: Mr. Garay is a 66-year-ol d gentleman who was seen in the clinic recently for a history of intermittent gross hem aturia. He has been on anticoagulation for a history of a coagulopathy with a hypercoagulable state. He had been having intermitt ent gross hematuria. CT urogram and office flexible cystoscopy were done. The CT did not reveal any obvious genitourinary abnormalities with regard to malignancy. The off ice flexible cystoscopy revealed the presence of a small bladder tumor l ocated on the upper right lateral wall/dome with a smaller tiny satellite lesion nearby. The tumor appeared to be papillary and of low grade. I exp lained to the patient and his that a cystoscopy and TURBT (transurethral resection of bladder tumor) would be recommended in orde r to determine the pathology and see if this was low or high-grade and whether it was superficial or muscle invasive. Further treatment would be advised accordingly. They wis hed to schedule at this time and he went through the routine preadmission rosita ting process. He held his anticoagulation (Eliquis) 2 days prior to this s urgery. He had been having ongoing intermittent hematuria even up until now . He also complained of a pressure discomfort in the region just below the umbilicus and was not sure whether this was related to his bladder or not. I had started him on Dutasteride to help ____ the prostate an d see if this helps with any potential prostate source of bleeding. I met with the marni ent and his in the preoperative bay prior to the surgery an d went over the indications as well as the technique and possible outcomes. We went ove r the possible complications and how these are managed. Ilia horvath was given a single dose of Rocephin intravenously for infection prophylaxis and bilateral sequenti al compression devices were PATIENT NAME: ARNEL GARAY [id number] placed on the lower extremities for DVT prophyla xis prior to the induction of anesthesia. DESCRIPTION OF THE PROCEDURE : The patient was taken to the operating room after informed consent was obtained. He was placed on the operating table in the supine position. He underwent the satisfactory a dministration of general anesthesia, was placed in the dorsal lithotomy p osition. His genital area was carefully prepped and draped in the usual sterile fashion. Routine time-out was done to verify the patient and procedure planned . I began with a careful introduction of a 21-Fren ch cystoscope sheath and 30-degree lens per the urethra into the bladder. Inspection of the prostatic urethra revealed bilobar enl argement with no significant median lobe component. Images of the prostatic urethra were taken for t he record. I then performed a routine systematic inspection of the nilson dder with a 30 and 70-degree lens with normal saline irrigation. Initially, it was diff icult to see these small tumors. Ultimately, I found him on the right upper lateral wall, a little below where I had documented him in the office under f lexible cystoscopy. I had not prepared for muscle blockade with anesth esia initially because I thought these tumors were located closer to the dome of the bl adder. I determined now as a result of the location that it would be olivera to be very careful about the resection to avoid bladder perforation due to an obturator reflex. See below. I removed the cystoscope and inserted a 26-Guyanese continuous flow resectoscope sheath with 30-degree lens a nd direct visual obturator after first dilating the urethral meatus further up t o 22-Guyanese caliber with Arnav sounds. Once the continuous flow resectoscope was inserted, then confirmed proper bipolar cautery settings with the [employer] Superloop and normal sali ne irrigation. The tumors were confirmed again and the resectos cope loop was extended just beyond the larger tumor. I prepared to t roxanna a small superficial segment of the tumor first and worked my way carefully towards the base that was to avoid any risk of significant bladder injury durin g resection if an obturator reflex was to occur. I then began the bipolar electrocauter y in this manner. He did have a quick obturator reflex twitch and fort unately because of the planning, I was able to resect the entire tu mor and quickly step-off the paddle once the twitch occurred. I reexamined the a maria isabel and saw that I had taken the entire small tumor in this first cautery ____ a nd there was no obvious perforation of the bladder. There was no fat seen at the base of the resection. Rather, I could clearly see detrusor muscle fragments. I mages of that, base of the resection were taken for the record. The other satellite tumor wa s much smaller and was easily amenable to a very superficial TURBT with a slight obtura tor reflex, but no problems. Hemostasis was secured with both resection sites . There was no significant bleeding encountered throughout this por tion of the procedure. I inspected the area carefully to make sure that there was no re sidual disease present. As explained above, these appeared to be superficia l bladder tumors that were likely low-grade in terms of their appearance. I was able to collect the ti ny tumor specimen measuring less than 1 cm and sent it to pathology for analysis. I reinspected the bladder after partially draining the bladder and saw that there was no s ignificant bleeding present. Satisfied with this, I then fully drained the bl adder and then removed all instruments. Lidocaine anesthetic jelly was instilled per the urethra into the bladder for help with postoperative pain control using a Uro-Jet. The patient PATIENT NAME: ARNEL GARAY [id number] was extubated and awakened f rom anesthesia. He tolerated the procedure well and was transferred to the recovery room in stable c ondition. There were no complications. ESTIMATED BLOOD LOSS: Minimal. SPECIMENS: Included the tiny bladder tumor speci men. PLAN: The patient was discha rged to home with a short supply of oral analgesics and antibiotics provided that he was abl e to empty his bladder in the recovery area. Findings and plans were discussed with the patient's after the surgery. I explained that I would call them likely one week later to review the results of the pathology with them. If the tumor was indeed low grade and not muscle invasive, I will plan for a flexible cyst oscopy in the office in approximately 3 months. The plan will change acc ording to the pathology results. Dictated By: Jose Merino MD Date Dictated: 04/30/2022 16:06:59 Date Transcribed: 04/30/2022 21:47:07 OD/SELENE/IGNACIO Receipt ID: [id number] Authenticated by Jose Merino MD On 05/06/2022 0 8:01:36 AM Electronically Signed by Jose Merino MD on 1 07/07/21 at 0801 PATIENT NAME: ARNEL GARAY [id number] 2022-04-29 09:25:00-00:00 [facility] ([facility]) Brief Op Note REPORT#:[id number] REPORT STATUS: Signed DATE:04/29/22 TIME: 924 PATIENT: ARNEL GARAY UNIT #: [id number] ROOM/BED: : 53 AGE: 66 SEX: M ATTEND: Alanna Merino MD ADM AUTHOR: Jose Merino MD * ALL edits or amendments must be made on the el [employer]/computer document * Op/Inv Proc Note - Brief Pre-procedure diagnosis: small bladder tumors < 2 cm on the right upper l ateral wall Post-procedure diagnosis: same as pre procedure dx Procedures performed: cysto, TURBT < 2 cm Primary Surgeon: Jose Merino MD Certified Retinal Angiographer(s): none Anesthesia: general anesthesia, local anesthesia Findings: < 1 cm bladder tumors on the right upper lateral wall resected Complications: none Estimated blood loss in ml's: minimal Specimens removed/altered: tiny bladder tumor < 1 cm Drain(s): None Tube(s): none Implant(s): none Fluids: see anesthesia records Urine output: n/a Disposition: PACU, stable Electronically Signed by Jose Merino MD on at 0929 RPT #:[id number] END OF REPORT
[2023-02-01 01:08] LABS: Specific Gravity 1.024 (1.005-1.030); Urine Bacteria None Seen /HPF (<20); Urine Bilirubin NEGATIVE (Negative); Urine Blood Trace (Negative); Urine Clarity Clear (Clear); Urine Color Yellow (Yellow); Urine Glucose NEGATIVE (Negative); Urine Mucus Slight /HPF (None Seen); Urine Protein NEGATIVE (Negative); Urine RBC <5 /HPF (None Seen); Urine Urobilinogen 1+ (Normal); Urine pH 5.5 (5.0-7.0)
[2023-02-01 01:23] LABS: Absolute Lymphocytes (CBC) 0.9 K/uL (0.7-4.9); Hematocrit 38.4 % (39.6-49.0); Lymphocytes % 9.9 % (15.3-44.8); MCV 90.3 fL (80-100); MPV 7.4 fL (7.6-11.3); Platelets 203 thou/uL (152-406); RBC Red Blood Cell Count 4.25 M/uL (4.33-5.43)
[2023-02-01 01:27] LABS: Protime INR 1.8
[2023-02-01 01:43] LABS: Albumin 3.4 g/dL (3.4-5.0); Bilirubin Total 0.8 mg/dL (0.2-1.0); Potassium 4.1 mEq/L (3.5-5.1); Protein, Total 7.7 g/dL (6.4-8.2)
--- NOTE | 2023-02-01 03:57 | P.HP ---
Patient History Date of Service: 02/01/23 History of Present Illness: 73-year-old female with a past medical history of hypertension, atrial fibrillation, asthma, presents to the emergency room with shortness of breath. She reports associated wheezing, productive cough, purulent rhinorrhea noticed, fever and chills, body aches x1 week. Plan to admit for asthma exacerbation, Laboratory evaluation positive for COVID, flu B+, CBC within normal limits 8.70 mild left shift 77.8, BUN 33, creatinine 1.62, UA negative Allergies fentanyl Allergy (Verified 01/24/23 11:33) Anaphylaxis influenza virus vaccine ts [id number] (36 mos up) [From Fluarix [id number] (PF)] Allergy (Verified 01/24/23 11:33) Swelling/Redness Home Medications: Atorvastatin Calcium [Lipitor] 40 mg PO BEDTIME 01/21/23 Carvedilol [Coreg] 2 mg PO BEDTIME 01/21/23 Cyclobenzaprine [Flexeril] 10 mg PO BEDTIME 01/21/23 Dutasteride [Avodart] 0.5 mg PO BID 01/21/23 Lisinopril [Zestril] 10 mg PO BEDTIME 01/21/23 Memantine HCl [Namenda] 10 mg PO BID 01/21/23 Omeprazole [Prilosec] 2 cap PO BID 01/21/23 Rivaroxaban [Xarelto] 10 mg PO BEDTIME 01/21/23 hydroCHLOROthiazide [Hydrochlorothiazide*] 12.5 mg PO DAILY 01/21/23 Tramadol HCl/Acetaminophen [Ultracet Tablet] 1 each PO Q6H PRN #1 01/24/23 Physical Examination - Studies Laboratory Data (last 24 hrs) 02/01/23 02/01/23 02/01/23 01:05 01:05 01:05 WBC 8.70 Hgb 13.1 L Hct 38.4 L Plt Count 203 PT 19.8 H INR 1.80 APTT 38.0 H Sodium 135 L Potassium 4.1 BUN 33 H Creatinine 1.62 H Glucose 133 H Total Bilirubin 0.8 AST 26 ALT 37 Alkaline Phosphatase 73 Microbiology Data (last 24 hrs): 02/01/23 01:00 Nasopharnyx Influenza Type A Antigen Screen - Final 02/01/23 01:00 Nasopharnyx Influenza Type B Antigen Screen - Final Assessment and Plan - Advance Directives Does patient have a Living Will: No Does patient have a Durable POA for Healthcare: No
--- NOTE | 2023-02-01 04:27 | ER ---
Nurse's Notes [facility] Name: Elvin Modi Jr Age: 67 yrs Sex: Male : 1955 Arrival Date: 01/31/2023 Time: 23:39 Bed [id number] Private MD: Diagnosis: Influenza due to unidentified influenza virus with other respiratory manifestations Presentation: 02/01 00:02 Chief complaint: Patient states: c/o fever that has been intermittent for the last week me1 but has become more frequent since yesterday. c/o cough, body aches, sore throat. c/o painful urination with difficulty voiding and urine is dark. Coronavirus screen: Vaccine status: Patient reports receiving the 2nd dose of the covid vaccine. Ebola Screen: No symptoms or risks identified at this time. Initial Sepsis Screen: Does the patient meet any 2 criteria? No. Patient's initial sepsis screen is negative. Does the patient have a suspected source of infection? No. Patient's initial sepsis screen is negative. Risk Assessment: Do you want to hurt yourself or someone else? Patient reports no desire to harm self or others. Onset of symptoms was January 24, 2023. 00:02 Method Of Arrival: Ambulatory me1 00:02 Acuity: QUINTON 3 me1 Historical: - Allergies: 00:05 Fentanyl; me1 00:05 flu vaccine [id number](6mos up); me1 - PMHx: 00:05 3 Strokes; Hypertensive disorder; MT; me1 - PSHx: 00:05 2 back surgeries; 8 neck surgeries; me1 - Immunization history:: Adult Immunizations up to date. - Social history:: Smoking status: Patient/guardian denies using tobacco, but has a distant history of tobacco abuse. Screenin:22 [facility] ED Fall Risk Assessment (Adult) History of falling in the last 3 months, pf1 including since admission No falls in past 3 months (0 pts) Confusion or Disorientation No (0 pts) Intoxicated or Sedated No (0 pts) Impaired Gait No (0 pts) Mobility Assist Device Used No (0 pt) Altered Elimination No (0 pt) Score/Fall Risk Level 0 - 2 = Low Risk Oriented to surroundings, Maintained a safe environment, Educated pt \T\ family on fall prevention, incl call for assistance when getting out of bed, Assessed \T\ reinforced patient's understanding of fall precautions, Provided non-skid footwear, Hourly rounding (assess needs \T\ fall precautionary measures) done, Used ambulatory aids as needed (educated on \T\ assisted with), Used gait belt as appropriate. Abuse screen: Denies threats or abuse. Nutritional screening: No deficits noted. Tuberculosis screening: No symptoms or risk factors identified. Assessment: 01/31 01:30 Reassessment: Patient appears in no apparent distress at this time. Patient and/or pf1 family updated on plan of care and expected duration. Pain level reassessed. Patient is alert, oriented x 3, equal unlabored respirations, skin warm/dry/pink. Patient states feeling better. Patient states symptoms have improved. 02/01 00:21 General: Appears in no apparent distress. comfortable, well groomed, well developed, pf1 Behavior is calm, cooperative, appropriate for age, quiet. 00:21 Pain: Complains of pain in sore throat and body aches Pain currently is 4 out of 10 on pf1 a pain scale. Neuro: No deficits noted. Level of Consciousness is awake, alert, obeys commands, Oriented to person, place, time, situation. Cardiovascular: No deficits noted. Capillary refill < 3 seconds Patient's skin is warm and dry. Respiratory: Reports cough that is Airway is patent Respiratory effort is even, unlabored, Respiratory pattern is regular, symmetrical. GI: No deficits noted. No signs and/or symptoms were reported involving the gastrointestinal system. : No deficits noted. No signs and/or symptoms were reported regarding the genitourinary system. EENT: Reports pain in sore throat. Derm: No deficits noted. No signs and/or symptoms reported regarding the dermatologic system. Musculoskeletal: Reports pain in generalized body aches. Vital Signs: 00:02 BP 151 / 81; Pulse 100; Resp 19; Temp 99.9(TE); Pulse Ox 99% on R/A; Weight 112.94 kg; me1 Height 6 ft. 3 in. ; 01:00 BP 144 / 78; Pulse 92; Resp 16; Pulse Ox 100% on R/A; pf1 02:00 BP 137 / 89; Pulse 89; Resp 18; Temp 98; Pulse Ox 100% on R/A; pf1 00:02 Body Mass Index 31.12 (112.94 kg, 190.5 cm) me1 ED Course: 01/31 23:41 Patient arrived in ED. cc5 02/01 00:05 Triage completed. me1 00:05 Arm band placed on Patient placed in waiting room. me1 00:06 Do Morales FNP-C is PHCP. kb 00:06 Gonzalo Webster MD is Attending Physician. kb 00:18 Do Morales FNP-C is PHCP. kb 00:18 Gonzalo Webster MD is Attending Physician. kb 00:22 No provider procedures requiring assistance completed. pf1 00:23 Castro Ruvalcaba, RN is Primary Nurse. bp 00:30 Inserted saline lock: 22 gauge in left antecubital area, using aseptic technique. Blood pf1 collected. 00:30 Blood Culture Adult (2) Sent. pf1 01:00 Patient has correct armband on for positive identification. Bed in low position. Call pf1 light in reach. 02:00 Provided Education on: Flu B . pf1 02:00 IV discontinued, intact, bleeding controlled, No redness/swelling at site. Pressure pf1 dressing applied. 02:13 Chest Single View XRAY In Process Unspecified. EDMS Administered Medications: No medications were administered Medication: 02:00 VIS not applicable for this client. pf1 Outcome: 02:00 Discharged to home ambulatory, pf1 02:00 Condition: improved 02:00 Discharge instructions given to patient, Instructed on discharge instructions, follow up and referral plans. Demonstrated understanding of instructions, follow-up care, 02:00 Patient left the ED. pf1 02:00 Discharge ordered by MD. pf1 Signatures: Dispatcher [employer] EDMS Do Morales FNP-C CRIME SCENE EVIDENCE TECHNICIAN-Castro [place], RN HAI bp Chance Tyson RN RN as6 Octavia Alamo RN RN pf1 Carla Timmons cc5 Camila Raymundo RN RN me1 Corrections: (The following items were deleted from the chart) 07:50 04:26 Discharge ordered by MD. as6 pf1 07:50 04:26 Patient left the ED. as6 pf1 07:52 01:00 Inserted saline lock: 22 gauge in left antecubital area, using aseptic technique. pf1 Blood collected. pf1 07:53 07:51 BLOOD CULTURE*+BA.LAB.BRZ drawn and sent. pf1 pf1
--- NOTE | 2023-02-01 04:27 | EDPHYS ---
Physician Documentation [facility] Name: Elvin Modi Jr Age: 67 yrs Sex: Male : 1955 Arrival Date: 01/31/2023 Time: 23:39 Bed IW10 Private MD: ED Physician Gonzalo Webster HPI: 02/01 00:52 This 67 yrs old Male presents to ER via Ambulatory with complaints of Fever, Penile kb Pain. 00:52 The patient or guardian reports cough, that is intermittent, described as mild, flu kb symptoms, low-grade fever, myalgias. Onset: The symptoms/episode began/occurred 8 day(s) ago. Severity of symptoms: At their worst the symptoms were moderate, in the emergency department the symptoms are unchanged. Modifying factors: The symptoms are alleviated by nothing, the symptoms are aggravated by nothing. Associated signs and symptoms: Pertinent positives: fever, rhinorrhea. The patient has not experienced similar symptoms in the past. The patient has not recently seen a physician. Pt reports cough, congestion and fever since 01/24/23. Reports burning with urination, difficulty urinating and dark urine today. Historical: - Allergies: 00:05 Fentanyl; me1 00:05 flu vaccine [id number](6mos up); me1 - PMHx: 00:05 3 Strokes; Hypertensive disorder; [place]; me1 - PSHx: 00:05 2 back surgeries; 8 neck surgeries; me1 - Immunization history:: Adult Immunizations up to date. - Social history:: Smoking status: Patient/guardian denies using tobacco, but has a distant history of tobacco abuse. ROS: 00:51 Abdomen/GI: Negative for abdominal pain, nausea, vomiting, diarrhea, and constipation, kb 00:51 Constitutional: Positive for body aches, chills, fatigue, fever, malaise, 00:51 ENT: Positive for rhinorrhea, sinus congestion, 00:51 Respiratory: Positive for cough, 00:51 : Positive for urinary symptoms, burning with urination, dark urine, 00:51 All other systems are negative, Exam: 00:51 Constitutional: This is a well developed, well nourished patient who is awake, alert, kb and in no acute distress. Head/Face: Normocephalic, atraumatic. ENT: Moist Mucous membranes Cardiovascular: Regular rate Respiratory: Respirations even and unlabored. No increased work of breathing. Talking in full sentences Abdomen/GI: Soft, non-tender. No distention Skin: Warm, dry with normal turgor. Normal color. MS/ Extremity: Pulses equal, no cyanosis. Neurovascular intact. Full, normal range of motion. Neuro: Awake and alert, GCS 15, oriented to person, place, time, and situation. Moves all extremities. Normal gait. 00:56 ECG was reviewed by the Attending Physician. kb Vital Signs: 00:02 BP 151 / 81; Pulse 100; Resp 19; Temp 99.9(TE); Pulse Ox 99% on R/A; Weight 112.94 kg; me1 Height 6 ft. 3 in. ; 01:00 BP 144 / 78; Pulse 92; Resp 16; Pulse Ox 100% on R/A; pf1 02:00 BP 137 / 89; Pulse 89; Resp 18; Temp 98; Pulse Ox 100% on R/A; pf1 00:02 Body Mass Index 31.12 (112.94 kg, 190.5 cm) me1 MDM: 00:06 Patient medically screened. kb 00:53 Differential Diagnosis: Bronchitis Influenza Upper Respiratory Infection Sinusitis kb Viral Syndrome Other flu, covid, dehydration, uti. Data reviewed: vital signs, nurses notes. 16:04 Counseling: I had a detailed discussion with the patient and/or guardian regarding the kb historical points, exam findings, and any diagnostic results supporting the discharge/admit diagnosis, lab results, radiology results, the need for outpatient follow up, a family practitioner, to return to the emergency department if symptoms worsen or persist or if there are any questions or concerns that arise at home. 02/01 00:31 Order name: Flu; Complete Time: 04:20 kb 02/01 00:31 Order name: COVID-19 SARS RT PCR; Complete Time: 04:20 kb 02/01 00:31 Order name: Blood Culture Adult (2) kb 02/01 00:31 Order name: CBC with Diff; Complete Time: 04:20 kb 02/01 00:31 Order name: CMP; Complete Time: 04:20 kb 02/01 00:31 Order name: Lactate w/ 2H reflex if indic.; Complete Time: 04:20 kb 02/01 00:31 Order name: Protime (+inr); Complete Time: 04:20 kb 02/01 00:31 Order name: Ptt, Activated; Complete Time: 04:20 kb 02/01 00:31 Order name: Urinalysis w/ reflexes; Complete Time: 04:20 kb 02/01 02:15 Order name: Glucose, Ancillary Testing; Complete Time: 04:20 EDMS 02/01 00:31 Order name: Chest Single View XRAY kb 02/01 00:31 Order name: EKG; Complete Time: 00:32 kb 02/01 00:31 Order name: Accucheck kb 02/01 00:31 Order name: Cardiac monitoring; Complete Time: 07:51 kb 02/01 00:31 Order name: EKG - Nurse/Tech; Complete Time: 07:51 kb 02/01 00:31 Order name: IV Saline Lock - Large Bore; Complete Time: 07:51 kb 02/01 00:31 Order name: Labs collected and sent; Complete Time: 07:51 kb 02/01 00:31 Order name: O2 Per Protocol; Complete Time: 07:51 kb 02/01 00:31 Order name: O2 Sat Monitoring; Complete Time: 07:51 kb 02/01 00:31 Order name: Vital Signs; Complete Time: 07:51 kb EC:56 Rate is 93 beats/min. Rhythm is regular. QRS [place] is Normal. DC interval is normal at kb 176 msec. QRS interval is normal at 98 msec. QT interval is normal at 437 msec. Administered Medications: No medications were administered Disposition: 04:21 Co-signature as Attending Physician, Gonzalo Webster MD I agree with the assessment sp4 and plan of care. I reviewed the patient's care provided by Advanced Practice Provider \T\ agree w/ the diagnosis \T\ care plan. I personally saw the pt \T\ performed a substantive portion of the visit, incldng all aspects of the (History/Exam/Medical Decision Making). Disposition Summary: 02/01/23 04:26 Discharge Ordered Notes: Location: Home as6 Condition: Stable as6 Diagnosis - Influenza due to unidentified influenza virus with other respiratory manifestations as6 Forms: - Medication Reconciliation Form as6 - Thank You Letter as6 - Antibiotic Education as6 - Prescription Opioid Use as6 - Patient Portal Instructions as6 - Leadership Thank You Letter as6 Signatures: Dispatcher [employer] EDMS Morales Do, CEMENT CUTTER-C CEMENT CUTTER-Ckb Chance Tyson, HAI RN as6 Gonzalo Webster MD MD sp4 Camila Raymundo RN RN me1
[2023-02-01 04:39] VITALS: BP 151/81; TEMP 99.9; O2SAT 99
--- NOTE | 2023-02-01 15:36 | RAD REPORT ---
EXAM DESCRIPTION: RAD - Chest Single View - 02/01/2023 1:04 am CLINICAL HISTORY: The patient is 67 years old and is Male; Cough;Congestion TECHNIQUE: Frontal view of the chest. COMPARISON: No relevant prior studies available. FINDINGS: Lungs: Mildly prominent interstitial markings. No consolidation. Pleural space: Unremarkable. No pneumothorax. Heart: Unremarkable. Mediastinum: Unremarkable. Bones/joints: Postsurgical changes in the cervical spine. IMPRESSION: Mildly prominent interstitial markings. No consolidation. Electronically signed by: Joshua Garibay MD 02/01/2023 1:24 AM CDT Due to temporary technical issues with the PACS/Fluency reporting system, reports are being signed by the in house radiologists without review as a courtesy to insure prompt reporting. The interpreting radiologist is fully responsible for the content of the report.
--- NOTE | 2023-02-02 14:37 | EKG ---
Test Date: 2023-02-01 Test Time: 00:53:49 Keyboard Action Assembler: MEHREEN MEASUREMENT RESULTS: Intervals: Rate: 93 VT: 176 QRSD: 98 QT: 352 QTc: 437 [place]: P: 30 VT: 176 QRS: -57 T: 59 INTERPRETIVE STATEMENTS: Normal sinus rhythm Left anterior fascicular block Abnormal ECG Compared to ECG 01/21/2023 14:18:45 Left anterior fascicular block now present Left-axis deviation no longer present Electronically Signed On 02-02-23 14:32:58 CDT by Wesley Giron
== END 2023-02-01 04:26 | disposition home or self-care (01) ==
LOC: ER 23:39 → UNDOADMIN 02-01 03:57 → ERHOLD 02-01 03:57
DX: J11.1 Influenza due to unidentified influenza virus with other respiratory manifestations (principal); Z20.822 Contact with and (suspected) exposure to COVID-19; I10 Essential (primary) hypertension; Z88.5 Allergy status to narcotic agent; Z88.7 Allergy status to serum and vaccine
CPT/HCPCS: 36415; 71045; 80053; 81001; 82947; 83605; 85025; 85610; 85730; 87040; 87635; 87804; 93005